=== PATIENT | female | born 1985 | race Two or more races ===

== ENCOUNTER 2019-01-31 10:25 | Inpatient (IN) | payer OTHER ==
[2019-01-31] MEDS ORDERED: ELECTROLYTE-148 SOLN 1,000 ML IV SCH (10:45)
--- NOTE | 2019-01-31 10:59 | HP ---
Past Medical History - Admission Chief Complaint: IOL History of Present Illness: 34yo @ 41+wks here for IOL for postdates No VB/LOF. No ctx. +FM Preg c/b: late transfer of care, AMA History Source: Patient Limitations to Obtaining History: No Limitations, Clinical Condition, Dementia, Intoxication, Intubated, Language Barrier, Physical Impairment, Poor Historian, Uncooperative, Unresponsive, Other - Past Medical History MULTI MEDIA SPECIALIST: No: Alzheimer's, CVA, Dementia, Migraine, Multiple Sclerosis, Peripheral Neuropathy, Parkinson's, Seizure, Syncope, TIA, Vertigo, Other Cardiovascular: No: AFIB, Aneurysm, Aortic Insufficiency, Aortic Stenosis, CAD, CHF, Deep Vein Thrombosis, HTN, Hyperlipdemia, NH, Mitral Insufficiency, Mitral Stenosis, Murmur, Pulmonary Hypertension, Other Pulmonary: No: Asthma, Bronchitis, Cancer, COPD, O2 Dependent, Pneumonia, Previously Intubated, Pulmonary Embolus, Pulmonary Fibrosis, Sleep Apnea, Other Gastrointestinal: No: Ascites, Cancer, Constipation, Crohn's Disease, Diverticulitis, Diverticulosis, Esophageal Varices, Gastritis, GERD, GI Bleed, Hemorrhoids, Hiatal Hernia, Inflamatory Bowel Disease, Irritable Bowel Disease, Pancreatitis, Peptic Ulcer Disease, Ulcerative Colitis, Other Hepatobiliary: No: Cirrhosis, Cholelithiasis, Cholecystitis, Choledocholithiasis , Hepatitis A, Hepatitis B, Hepatitis C, Other Renal/: No: Renal Failure, Renal Inusuff, BPH, Cancer, Hematuria, Hemodialysis , Neurogenic Bladder, Renal Calculi, UTI, Other Reproductive: No: Ectopic , Endometriosis, Fibroids, PID, Polycystic Ovary Syndrome, Postmenopausal, Other ...: 1 ...Para: 0 ...EDC by Dates: 01/22/19 ...EDC by Sono: 01/14/19 Heme/Onc: Yes: Anemia - Past Surgical History Past Surgical History: Yes: None Hx Myomectomy: No Hx Transabdominal Cerclage: No - Advance Directives Advance Directives: No: Living Will, Health Care Proxy, DNR, Organ Donor, Tissue Donor, MOLST - Smoking History Smoking history: Never smoked Have you smoked in the past 12 months: No - Alcohol/Substance Use Hx Alcohol Use: No History of Substance Use: reports: None - Social History Usual Living Arrangement: Yes: Alone ADL: Independent History of Recent Travel: No Physical Exam - Maternity - Abdominal Exam/OB Number of Fetuses: Single Presentation: Vertex Contractions: Yes Regularity: Irregular Intensity: Unaware Monitor Mode: External Heart Rate Location: [facility] Category: I Accelerations: Non-Uniform Decelerations: None - Vaginal Exam/OB Dilatation (cm): 0 Effacement (%): 0 Amniotic Membrane Status: Intact Presentation: Vertex/Position Station: -3 - Physical Exam Edema: No Assessment/Plan 34yo @ 41+wks by 01/22/19 PAVITHRA here for IOL for postdates Admit to L&D Clear liquids, IVFs Cat I tracing Cervical ripening- cytotec; pitocin when favorable Anticipate Aaliyah Dinero MD
[2019-01-31 11:41] LABS: BASO % 0.2 % (0-2.0); HEMATOCRIT 32.8 % (32.4-45.2); HEMOGLOBIN 11.2 GM/dL (10.7-15.3); LYMPH % 27.8 % (8-40); MCH 31.4 pg (25.7-33.7); MCHC 34.1 g/dl (32.0-36.0); MEAN CELL VOLUME 91.9 fl (80-96); MEAN PLT VOLUME 9.2 fl (7.5-11.1); MONO % 7.2 % (3.8-10.2); NEUT % 63.8 % (42.8-82.8); PLATELET COUNT 141 K/MM3 (134-434); RBC 3.57 M/mm3 (3.60-5.2); RDW 14.5 % (11.6-15.6); WHITE BLOOD COUNT 5.2 K/mm3 (4.0-10.0)
[2019-01-31] MEDS: MISOPROSTOL 100 MCG TABLET PO SCH ×3 (11:50→20:45)
[2019-01-31 11:56] LABS: INR 0.91 (0.83-1.09); PROTHROMBIN TIME (PATIENT) 10.7 SEC (9.7-13.0)
[2019-01-31 11:59] LABS: ACTIVATED PTT 25.6 SECONDS (25.2-36.5)
[2019-01-31 12:08] LABS: CALCIUM 8.5 mg/dL (8.5-10.1); CREATININE 0.7 mg/dL (0.55-1.3); POTASSIUM 3.6 mmol/L (3.5-5.1)
[2019-01-31 12:32] VITALS: BMI 31.2
[2019-01-31 12:42] LABS: COCAINE, UR NEGATIVE ng/ml (CUTOFF=300); METHADONE, UR NEGATIVE ng/ml (CUTOFF=300); OPIATES, URI NEGATIVE ng/ml (CUTOFF=300); PHENCYCLIDINE,URINE NEGATIVE ng/ml (CUTOFF=25); URINE AMPHETAMINES NEGATIVE ng/ml (CUTOFF=500); URINE BARBITURATES NEGATIVE ng/ml (CUTOFF=200); URINE BENZODIAZEPINES NEGATIVE ng/ml (CUTOFF=200)
--- NOTE | 2019-01-31 15:29 | PN ---
Progress Note (short form) - Note Progress Note: patient counseled regarding induction of labor including but not limited to expectations, risks and complications. All questions answered. Patient allowed to eat and induction will continue.
[2019-01-31] MEDS ORDERED: ELECTROLYTE-148 SOLN 1,000 ML IV ONE (19:30)
[2019-02-01] MEDS: MISOPROSTOL 100 MCG TABLET PO SCH (01:00)
--- NOTE | 2019-02-01 05:45 | PN ---
Ante-Partal Exam - Subjective Subjective: Patient evaluated for progression of labor. She does not desire pain control at this time Vital Signs: Vital Signs Temperature 97.8 F 02/01/19 01:00 Pulse Rate 68 02/01/19 01:00 Respiratory Rate 20 02/01/19 01:00 Blood Pressure 130/82 02/01/19 01:00 O2 Sat by Pulse Oximetry (%) Bleeding: No Headache: No Visual changes: No Right upper quadrant pain: No - Contractions Contractions: Yes Regularity: Regular Intensity: Moderate Monitor Mode: External - Exam during Labor Heart Rate: 130 (reactive) Variability: Moderate Monitor Accelerations: Present Monitor Decelerations: None Exam: Vaginal Dilatation (cm): 4 Effacement (%): 70 Amniotic Membrane Status: Ruptured (blood stained) Amniotic Fluid: Blood Stained Presentation: Vertex (sutures palpated) Station: -3 Remarks: asynclitic - Assessment/Plan Assessment/Plan: 34 y/o G1 @ 41.3 wks, IOL due to late term, reactive FHT, S/P cytotec PO protocol, S/P ROM and adequate contractions -Expectant management -Pain control on request -Re-evaluate accordingly
[2019-02-01] MEDS ORDERED: FENTANYL/BUPIVACAINE/NS/PF - PCEA - 50 ML DISP.SYRIN EP ONE (07:09)
--- NOTE | 2019-02-01 07:49 | PN ---
Ante-Partal Exam - Subjective Subjective: Patient is examined prior to epidural administration Vital Signs: Vital Signs Temperature 97.7 F 02/01/19 07:00 Pulse Rate 69 02/01/19 07:00 Respiratory Rate 20 02/01/19 07:00 Blood Pressure 138/72 02/01/19 07:00 O2 Sat by Pulse Oximetry (%) Bleeding: No Headache: No Visual changes: No Right upper quadrant pain: No - Contractions Contractions: Yes Regularity: Regular Intensity: Mod/Strong Monitor Mode: External - Exam during Labor Heart Rate: 130 (reactive) Variability: Moderate Category: I Monitor Accelerations: Present Monitor Decelerations: None Exam: Vaginal Dilatation (cm): 8 Effacement (%): 100 Amniotic Membrane Status: Ruptured Presentation: Vertex Station: -2 - Assessment/Plan Assessment/Plan: 34 y/o G1 @ 41.3wks, cat I FHT, S/P AROM, requesting epidural. -Epidural is Ok -Expectant management
[2019-02-01] MEDS ORDERED: OXYTOCIN 30 UNITS in 0.9% NS 30 UNIT/500 ML INFUS.BAG IVPB SCH (08:30)
[2019-02-01] MEDS ORDERED: NALOXONE HCL 0.4 MG/ML VIAL IVPUSH PRN (08:58)
[2019-02-01] MEDS ORDERED: FENTANYL/BUPIVACAINE/NS/PF - PCEA - 50 ML DISP.SYRIN EP SCH (09:00)
--- NOTE | 2019-02-01 12:03 | PN ---
Progress Note (short form) - Note Progress Note: cx full 100 vx -1 mr, fhr cat 2 with head compression good BTB variability, will revaluate in 1 hr, lt side , o2 , iv hydrartion
[2019-02-01] MEDS ORDERED: ceFAZolin SODIUM 1 GM VIAL ONE (12:49)
[2019-02-01] MEDS ORDERED: LIDO 2%/EPI 1:200000 PRESRVFRE (20 ML SDVIAL) ONE (12:53)
[2019-02-01] MEDS ORDERED: OXYTOCIN 20 UNITS in 0.9% NS 20 UNIT/1,000 ML INFUS.BAG IV ONE (12:54)
--- NOTE | 2019-02-01 13:01 | PN ---
Progress Note (short form) - Note Progress Note: cx full 100 vx -1, fhr cat 2 , persistent early decl with late component, no descent with pushing advised c/s
[2019-02-01] MEDS ORDERED: DEXAMETHASONE SOD PHOSPHATE 4 MG/1 ML VIAL ONE (13:15)
[2019-02-01] MEDS ORDERED: KETOROLAC TROMETHAMINE 30 MG/1 ML VIAL ONE (13:36)
[2019-02-01] MEDS ORDERED: diphenhydrAMINE HCL 25 MG CAPSULE (FP) PO PRN (14:13)
[2019-02-01] MEDS ORDERED: oxyCODONE HCL 5 MG TABLET PO PRN ×2 (14:13)
[2019-02-01] MEDS ORDERED: BENZOCAINE 28 GM HEMORRHOIDAL OINTMENT PR PRN (14:13)
[2019-02-01] MEDS ORDERED: IBUPROFEN 800 MG/8 ML IJ IVPB PRN (14:13)
[2019-02-01] MEDS ORDERED: METHYLERGONOVINE MALEATE 0.2 MG/1 ML AMP IM PRN (14:13)
[2019-02-01] MEDS ORDERED: BENZOCAINE 20% 57 GM BOTTLE TP PRN (14:13)
[2019-02-01] MEDS ORDERED: WITCH HAZEL 50% (TUCKS) 40 PAD/JAR PAD TP PRN (14:13)
[2019-02-01] MEDS ORDERED: OXYTOCIN 20 UNITS in 0.9% NS 20 UNIT/1,000 ML INFUS.BAG IV SCH (14:15)
[2019-02-01] MEDS ORDERED: DEXTROSE 5%-LACTATED RINGERS 1,000 ML IV SCH (14:15)
[2019-02-01] MEDS ORDERED: ONDANSETRON 4 MG/2 ML VIAL IVPUSH PRN (14:17)
[2019-02-01] MEDS ORDERED: KETOROLAC TROMETHAMINE 30 MG/1 ML VIAL IVPUSH PRN (14:18)
[2019-02-01] MEDS ORDERED: CEFAZOLIN 1 GM/D5W 1 GM/50 ML BAG IVPB SCH (21:00)
--- NOTE | 2019-02-01 21:06 | OP ---
Operative Note - Note: Operative Date: 02/01/19 Operation: post date ,failure to descend , non reassuring fhr Findings: live baby ROP , cord around neck once Surgeon: Vince Yadav Bunch Maker Hand: Peter Garza Anesthesiologist/REAL ESTATE INTERNSHIP: Ana Angel Anesthesia: Epidural Specimens Removed: placenta Estimated Blood Loss (mls): 500 Drains & Tubes with Location: [facility] Blood Volume Replaced (mls): 0 Operative Report Dictated: Yes
--- NOTE | 2019-02-01 22:45 | OP ---
DATE OF OPERATION: 02/01/2019 PREOPERATIVE DIAGNOSES: post date, failure to descend in the 2nd stage of labor, nonreassuring heart rate. POSTOPERATIVE DIAGNOSES: post date, failure to descend in the 2nd stage of labor, nonreassuring heart rate. PROCEDURE: Primary low segment transverse section. SURGEON: Landry Yadav MD STONECUTTER ASSISTANT: CHRISTINE Tucker ANESTHESIA: Epidural. ANESTHESIOLOGIST: Ana Angel MD ESTIMATED BLOOD LOSS: 500 mL. OPERATION: The patient was taken to the operating room and, after adequate epidural anesthesia, abdomen and perineum were prepped and draped. A Pfannenstiel abdominal skin incision was made. Abdominal wall was cut [id number] until peritoneum was exposed and incised. Upon entering the abdominal cavity, the lower uterine segment was identified and the uterovesical fold of peritoneum established. Bladder was pushed down. Then, with the lower blade of the Bowie retractor in the pelvis, a low transverse incision was made and the incision extended laterally with bandage scissors. Amniotic sac was entered; clear fluid had delivered and nasal sites were suctioned and there was a cord around the neck x1. Baby was delivered without any difficulty. Placenta was delivered manually. Uterine cavity was cleaned out of remaining tissue. Uterine incision was closed in 2 layers, 1st layer with 0 Biosyn continuous suture, the 2nd layer with 0 Biosyn imbricating the 1st layer. Bladder flap was closed with 0 Biosyn continuous suture. Both tubes and ovaries were checked; were normal. No active bleeding was seen on the lap pads. Sponge and instrument count were correct. Peritoneum was closed with 0 Biosyn continuous suture. Muscles were brought together with interrupted suture of 0 Biosyn. Fascia was closed with 0 Biosyn continuous suture, subcutaneous fat with interrupted sutures of 0 Biosyn, and skin was closed with ziggy. The patient tolerated the procedure well, left the OR in good condition. LANDRY YADAV M.D. /[id number]
[2019-02-02] MEDS ORDERED: CEFAZOLIN 1 GM in DEXTROSE 5%-WATER - 50 ML IVPB SCH ×2 (01:45→05:00)
[2019-02-02] MEDS: IBUPROFEN 600 MG TABLET (FP) PO PRN ×3 (07:42→21:42)
[2019-02-02] MEDS: SIMETHICONE 80 MG TAB.CHEW (FP) PO PRN ×3 (07:42→21:42)
[2019-02-02] MEDS: ACETAMINOPHEN 325 MG TABLET (FP) PO PRN ×3 (07:43→21:42)
[2019-02-02 08:35] LABS: BASO % 0.2 % (0-2.0); HEMATOCRIT 28.1 % (32.4-45.2); HEMOGLOBIN 9.7 GM/dL (10.7-15.3); LYMPH % 16.8 % (8-40); MCH 32.1 pg (25.7-33.7); MCHC 34.7 g/dl (32.0-36.0); MEAN CELL VOLUME 92.7 fl (80-96); MONO % 5.5 % (3.8-10.2); NEUT % 77.5 % (42.8-82.8); PLATELET COUNT 122 K/MM3 (134-434); RBC 3.03 M/mm3 (3.60-5.2); RDW 14.8 % (11.6-15.6); WHITE BLOOD COUNT 9.3 K/mm3 (4.0-10.0)
[2019-02-02] MEDS ORDERED: DIPHTH,PERTUSS(ACELL),TET 0.5 ML DISP.SYRIN IM ONE (10:00)
--- NOTE | 2019-02-02 11:04 | PN ---
Progress Note (short form) - Note Progress Note: Anesthesia Post Op Note Pt seen s/p CSE for labor then used for c/section Pt awake alert sitting Pt denies n/v, h/a, back pain Tolerating po well, ambulating, no urinary retention, pain well controlled VSS no apparent anesthesia complications Leona Nicole.
--- NOTE | 2019-02-02 11:58 | PN ---
Post Progress Note - Subjective Subjective: no c/o pain she had not voided until 8.00 AM after [facility] was d/c ed at 5.00 AM pt was not OOB yet Post Day: 1 Type of Delivery: Primary C/S Vital Signs: Vital Signs Temperature 97.7 F 02/02/19 09:29 Pulse Rate 74 02/02/19 09:29 Respiratory Rate 20 02/02/19 09:29 Blood Pressure 108/67 02/02/19 09:29 O2 Sat by Pulse Oximetry (%) 99 02/01/19 12:30 Breast Exam: Yes: Soft, Other (soft , attempting to breast feed ). No: Engorged Uterus: Yes: Fundus Firm, Fundus below umbilicus, Non-tender Incision: Yes: Dressing dry and intact. No: Oozing Abdomen/GI: Yes: Abdomen soft (BS active ), Passing flatus, Tolerating PO ( clear fluids ). No: Abdominal Distention, Tender Lochia: Yes: Rubra Lochia, amount: Moderate Extremities: Yes: Calves non-tender Perineum: Yes: Intact Activity: Ambulating - Labs Labs: CBC WBC 9.3 K/mm3 (4.0-10.0) 02/02/19 08:10 RBC 3.03 M/mm3 (3.60-5.2) L 02/02/19 08:10 Hgb 9.7 GM/dL (10.7-15.3) L 02/02/19 08:10 Hct 28.1 % (32.4-45.2) L 02/02/19 08:10 MCV 92.7 fl (80-96) 02/02/19 08:10 MCH 32.1 pg (25.7-33.7) 02/02/19 08:10 MCHC 34.7 g/dl (32.0-36.0) 02/02/19 08:10 RDW 14.8 % (11.6-15.6) 02/02/19 08:10 Plt Count 122 K/MM3 (134-434) L 02/02/19 08:10 MPV 9.0 fl (7.5-11.1) 02/02/19 08:10 Absolute Neuts (auto) 7.2 K/mm3 (1.5-8.0) 02/02/19 08:10 Neutrophils % 77.5 % (42.8-82.8) D 02/02/19 08:10 Lymphocytes % 16.8 % (8-40) D 02/02/19 08:10 Monocytes % 5.5 % (3.8-10.2) 02/02/19 08:10 Eosinophils % 0.0 % (0-4.5) D 02/02/19 08:10 Basophils % 0.2 % (0-2.0) 02/02/19 08:10 Nucleated RBC % 0 % (0-0) 02/02/19 08:10 Other Findings, Remarks: RS CTA I/O 4388/0980 Problem List - Problems (1) Status post section routine follow-up Code(s): Z39.2 - ENCOUNTER FOR ROUTINE FOLLOW-UP; Z98.891 - HISTORY OF UTERINE SCAR FROM PREVIOUS SURGERY Assessment/Plan po c/s day #1 stable , Anemia po plan ct po care encourage ambulation, po fluids , deep breathing
[2019-02-02] MEDS ORDERED: BISACODYL 10 MG SUPP.RECT PR PRN (14:13)
[2019-02-03] MEDS: SIMETHICONE 80 MG TAB.CHEW (FP) PO PRN ×2 (03:56→19:48)
[2019-02-03] MEDS: IBUPROFEN 600 MG TABLET (FP) PO PRN ×4 (03:56→19:48)
[2019-02-03] MEDS: ACETAMINOPHEN 325 MG TABLET (FP) PO PRN ×4 (03:57→19:48)
--- NOTE | 2019-02-03 08:21 | PN ---
Post Progress Note - Subjective Subjective: Pain controlled. No fevers/chills. Post Day: 2 Type of Delivery: Primary C/S Vital Signs: Vital Signs Temperature 98.6 F 02/02/19 21:00 Pulse Rate 88 02/02/19 21:00 Respiratory Rate 18 02/02/19 21:00 Blood Pressure 117/66 02/02/19 21:00 O2 Sat by Pulse Oximetry (%) 99 02/01/19 12:30 Uterus: Yes: Fundus below umbilicus Incision: Yes: Dressing dry and intact, Sutures intact Abdomen/GI: Yes: Abdomen soft, Passing flatus, Tolerating PO Lochia: Yes: Rubra Lochia, amount: Small Extremities: Yes: Calves non-tender Activity: Ambulating - Labs Labs: CBC WBC 9.3 K/mm3 (4.0-10.0) 02/02/19 08:10 RBC 3.03 M/mm3 (3.60-5.2) L 02/02/19 08:10 Hgb 9.7 GM/dL (10.7-15.3) L 02/02/19 08:10 Hct 28.1 % (32.4-45.2) L 02/02/19 08:10 MCV 92.7 fl (80-96) 02/02/19 08:10 MCH 32.1 pg (25.7-33.7) 02/02/19 08:10 MCHC 34.7 g/dl (32.0-36.0) 02/02/19 08:10 RDW 14.8 % (11.6-15.6) 02/02/19 08:10 Plt Count 122 K/MM3 (134-434) L 02/02/19 08:10 MPV 9.0 fl (7.5-11.1) 02/02/19 08:10 Absolute Neuts (auto) 7.2 K/mm3 (1.5-8.0) 02/02/19 08:10 Neutrophils % 77.5 % (42.8-82.8) D 02/02/19 08:10 Lymphocytes % 16.8 % (8-40) D 02/02/19 08:10 Monocytes % 5.5 % (3.8-10.2) 02/02/19 08:10 Eosinophils % 0.0 % (0-4.5) D 02/02/19 08:10 Basophils % 0.2 % (0-2.0) 02/02/19 08:10 Nucleated RBC % 0 % (0-0) 02/02/19 08:10 Assessment/Plan 34yo s/p PLTCS, POD#2 Routine PP care Po pain control Labs pending Anticipate d/c to home by POD#4 Aaliyah Dinero MD
[2019-02-03] MEDS ORDERED: SENNOSIDES/DOCUSATE COMBO (SENNA PLUS) TABLET (UD) PO PRN (22:00)
[2019-02-04] MEDS: SIMETHICONE 80 MG TAB.CHEW (FP) PO PRN ×2 (00:22→07:57)
[2019-02-04] MEDS: ACETAMINOPHEN 325 MG TABLET (FP) PO PRN ×2 (00:22→07:57)
[2019-02-04] MEDS: IBUPROFEN 600 MG TABLET (FP) PO PRN ×2 (00:23→07:57)
--- NOTE | 2019-02-04 06:18 | PN ---
Progress Note (short form) - Note Progress Note: pod3 ,doing well, no c/o passing gas CBC, BMP 02/02/19 08:10 01/31/19 11:26 Last Vital Signs Temp Pulse Resp BP Pulse Ox 97.5 F L 71 18 127/65 99 02/03/19 22:00 02/03/19 22:00 02/03/19 22:00 02/03/19 22:00 02/01/19 12:30 abdomen soft, no distension, no cva incision dry, clean , no discharge lochia mild no calf tenderness plan ambulate, cbc
--- NOTE | 2019-02-04 06:20 | DS ---
Physical Exam-INDEPENDENT DISTRIBUTOR Vital Signs: Vital Signs Temperature 97.5 F L 02/03/19 22:00 Pulse Rate 71 02/03/19 22:00 Respiratory Rate 18 02/03/19 22:00 Blood Pressure 127/65 02/03/19 22:00 O2 Sat by Pulse Oximetry (%) 99 02/01/19 12:30 Constitutional: Yes: Well Nourished, No Distress, Calm Eyes: Yes: WNL, Conjunctiva Clear, EOM Intact HENT: Yes: WNL, Atraumatic, Normocephalic Neck: Yes: WNL, Supple, Trachea Midline Cardiovascular: Yes: WNL, Regular Rate and Rhythm Respiratory: Yes: WNL, Regular, CTA Bilaterally Gastrointestinal: Yes: WNL ...Rectal Exam: Yes: WNL Renal/: Yes: WNL ....Post : Yes: Uterus firm, Uterus non-tender, Slight lochia rubra Breast(s): Yes: WNL Musculoskeletal: Yes: WNL Extremities: Yes: WNL Integumentary: Yes: WNL Wound/Incision: Yes: Clean/Dry, Well Approximated, Spurger Intact Neurological: Yes: WNL, Alert, Oriented ...Motor Strength: WNL Psychiatric: Yes: WNL, Alert, Oriented Labs: CBC, BMP 02/02/19 08:10 01/31/19 11:26 Delivery - Delivery Section: Primary, Low Flap Transverse Type of Anesthesia: Epidural EBL (cc): 500 Delivery, Single - Stages of Labor Date 1st Stage Initiatied: 02/01/19 Time 1st Stage Initiated: 01:00 Date 2nd Stage Initiated: 02/01/19 Time 2nd Stage Initiated: 12:10 Date of Delivery: 02/01/19 Time of Delivery: 13:16 Time Placenta Delivered: 13:17 Placenta: Yes: Expressed - Condition of Senior Site Manager/Supervisor Metalizing Present: Yes Name: Theresa Salinas Gender: Male Weight: 7 lb 15 oz Position: Right, OP Total Hours ROM (Hrs/Mins): 8h17m - 1 Minute Total Score: 9 5 Minutes Total Score: 9 - Downs Feeding Plan Initial Plan: Elected not to breastfeed exclusively throughout hospitalization Discharge Summary Reason For Visit: INDUCTION OF LABOR Current Active Problems Status post section routine follow-up (Acute) Procedures: Principal: primary LST c/s. Hospital Course: no complication Condition: Stable - Instructions Diet, Activity, Other Instructions: Regular Diet Referrals: Vince Yadav MD [Staff Physician] - Disposition: HOME - Home Medications Comprehensive Discharge Medication List: Ambulatory Orders Prenat 115/Iron Fum/Folic/Dss [ 19 Tablet] 1 tab PO DAILY 01/31/19 Ibuprofen 600 mg PO Q6H PRN #30 tablet 02/03/19 Oxycodone HCl/Acetaminophen [Percocet 5-325 mg Tablet -] 1 - 2 tab PO Q6H PRN # 15 tab MDD 3 02/03/19
[2019-02-04 09:29] LABS: BASO % 0.3 % (0-2.0); EOS % 1.5 % (0-4.5); HEMATOCRIT 28.9 % (32.4-45.2); HEMOGLOBIN 9.9 GM/dL (10.7-15.3); LYMPH % 23.7 % (8-40); MCHC 34.2 g/dl (32.0-36.0); MEAN CELL VOLUME 93.6 fl (80-96); MONO % 5.4 % (3.8-10.2); NEUT % 69.1 % (42.8-82.8); PLATELET COUNT 149 K/MM3 (134-434); RBC 3.09 M/mm3 (3.60-5.2); RDW 14.5 % (11.6-15.6); WHITE BLOOD COUNT 5.6 K/mm3 (4.0-10.0)
[2019-02-04 12:09] VITALS: BP 121/55; PULSE 82; TEMP 98.8
--- NOTE | 2019-02-07 13:43 | PATH ---
Surgical Pathology Report Patient Name: ROSA ISELA HORTA [facility]. Rec. #: [id number] /Age/Gender: 1985 (Age: 34) / F Account: [id number] Location: [facility] OBS/UTILITIES MANAGER Taken: 02/01/2019 Received: 02/02/2019 Reported: 02/07/2019 Physicians: Marina Dinero Specimen(s) Received PLACENTA Clinical History Non-reassuring FHR, failure of descent Final Diagnosis PLACENTA: THIRD TRIMESTER PLACENTA WITH FOCAL INFARCTION (1.3 CM IN GREATEST DIMENSION). TRIVASCULAR CORD. MEMBRANES WITH NO DIAGNOSTIC ABNORMALITIES. Electronically Signed Roel Leal M.D. Gross Description The specimen is received fresh labeled placenta and is a 556 gram, 22 x 22 x 1.5cm. placenta with attached membranes and umbilical cord. The attached membranes are glistening, translucent, and insert marginally. The umbilical cord measures 15 cm. in length and averages 1.1 cm. in diameter. The cord inserts marginally. No true knots or strictures are identified. Cut surface of the umbilical cord reveals 3 vessels. Sectioning reveals red-brown, spongy parenchyma. No lesions are identified. Corporate Associate sections are submitted in three cassettes as follows: 1- membrane rolls and umbilical cord; 2-3- full thickness sections of placenta KWS/02/02/2019 gerryki/02/02/2019
== END 2019-02-04 13:50 | disposition home or self-care (01) | DRG 540 ==
LOC: JLDR 10:25 → J3W 02-01 15:32
PROVIDERS: ADMIT Obstetrics & Gynecology; ATTEND Obstetrics & Gynecology
PROC: 10D00Z1 Extraction of Products of Conception, Low, Open Approach (ICD-10-PCS; principal; 2019-02-01)
DX: O48.0 Post-term pregnancy (principal); Z3A.41 41 weeks gestation of pregnancy; O76 Abnormality in fetal heart rate and rhythm complicating labor and delivery; O65.4 Obstructed labor due to fetopelvic disproportion, unspecified; O69.81X0 Labor and delivery complicated by cord around neck, without compression, not applicable or unspecified; Z37.0 Single live birth; Z37.9 Outcome of delivery, unspecified
CPT/HCPCS: 36415; 36600; 80048; 80307; 82803; 85025; 85610; 85730; 86593; 86850; 86900; 86901; 88307-TC; 90715